=== PATIENT | female | born 1985 | race Caucasian/White ===

== ENCOUNTER 2018-10-22 18:37 | Emergency (ER) | payer MEDICARE ==
[2018-10-22] MEDS ORDERED: NORMAL SALINE 1000 ML 1,000 ML IV ONE (19:39)
[2018-10-22] MEDS ORDERED: MORPHINE SULFATE 10 MG/ML INJ IV ONE (19:39)
--- NOTE | 2018-10-22 19:39 | ER Document Report ---
ED General - General Chief Complaint: Weakness Stated Complaint: SHORTNESS OF BREATH,SHAKING Time Seen by Provider: 10/22/18 19:16 Mode of Arrival: Ambulatory Information source: Patient Notes: This is a 33-year-old female (transitioning to male), history of asthma who presents to the emergency room with shortness of breath, feeling lightheaded, faint, diaphoresis. 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 TRAVEL OUTSIDE OF THE [place] IN LAST 30 DAYS: No - HPI Onset: Last week Onset/Duration: Gradual Quality of pain: Dull Severity: Moderate Pain Level: 1 Associated symptoms: Nonproductive cough, Shortness of breath. denies: Chest pain, Fever Exacerbated by: Denies Relieved by: Denies Similar symptoms previously: No Recently seen / treated by doctor: No Past Medical History - General Information source: Patient - Social History Smoking Status: Current Every Day Smoker Cigarette use (# per day): Yes - 1/4 pack/day Chew tobacco use (# tins/day): No Frequency of alcohol use: None Drug Abuse: None Lives with: Family Family History: None Patient has suicidal ideation: No Patient has homicidal ideation: No - Past Medical History Cardiac Medical History: Reports: None Pulmonary Medical History: Reports: Hx Asthma EENT Medical History: Reports: None Neurological Medical History: Reports: None Endocrine Medical History: Reports: None Renal/ Medical History: Reports: None Malignancy Medical History: Reports: None GI Medical History: Reports: None Musculoskeletal Medical History: Reports None Skin Medical History: Reports None Psychiatric Medical History: Reports: None Traumatic Medical History: Reports: None Infectious Medical History: Reports: None Surgical Hx: Other - ENT surgery Review of Systems - Review of Systems Constitutional: denies: Chills, Fever EENT: No symptoms reported Cardiovascular: denies: Chest pain, Palpitations, Heart racing Respiratory: See HPI Gastrointestinal: No symptoms reported Genitourinary: No symptoms reported Female Genitourinary: No symptoms reported Musculoskeletal: No symptoms reported Skin: See HPI Hematologic/Lymphatic: No symptoms reported Neurological/Psychological: No symptoms reported Physical Exam - Vital signs Vitals: Temp Pulse Resp BP Pulse Ox 98.5 F 113 H 18 153/87 H 97 10/22/18 18:45 12/09/18 18:45 10/22/18 18:45 10/22/18 18:45 10/22/18 18:45 Notes: Physical exam: GENERAL: She is alert and oriented x3, no acute distress HEAD: Atraumatic, normocephalic. EYES: Pupils equal round and reactive to light, extraocular movements intact, sclera anicteric, conjunctiva are normal. ENT: TMs normal, nares patent, oropharynx clear without exudates. Moist mucous membranes. NECK: Normal range of motion, supple without obvious mass or JVD. LUNGS: Breath sounds clear to auscultation bilaterally and equal. No wheezes rales or rhonchi. HEART: Regular rate and rhythm without murmurs, rubs or gallops. ABDOMEN: Soft, normoactive bowel sounds. No tenderness to palpation. No guarding, no rebound. No masses appreciated. EXTREMITIES: She does have a small laceration over the volar aspect of the middle finger. There is no pus drainage. There is no erythema or evidence of flexor tenosynovitis. Normal range of motion, no pitting or edema. No clubbing or cyanosis. NEUROLOGICAL: Cranial nerves II through XII grossly intact. Normal speech, moving all extremities. PSYCH: Normal mood, normal affect. SKIN: Warm, Dry, normal turgor, no rashes or lesions noted. Course - Re-evaluation Re-evalutation: 10/22/18 22:55 Note: Patient did get dual neb which he states had no significant improvement. Given the hormone therapy and cigarette smoking, we will get a CTA of the chest. - Vital Signs Vital signs: Temp Pulse Resp BP Pulse Ox 98.5 F 113 H 16 124/68 97 10/22/18 18:45 10/22/18 18:45 10/22/18 22:01 10/22/18 22:01 10/22/18 22:01 - Laboratory Result Diagrams: 10/22/18 19:50 10/22/18 19:50 - Diagnostic Test Radiology reviewed: Image reviewed, Reports reviewed - CTA shows no pulmonary emboli - EKG Interpretation by Me Rate: Normal Rhythm: NSR - EKG shows normal sinus rhythm with no acute ST-T wave changes Discharge - Discharge Clinical Impression: Dyspnea Condition: Stable Disposition: HOME, SELF-CARE Additional Instructions: As we discussed, the CT of the chest showed no evidence of blood clots or pneumonia or any problems with the lungs. Your blood work looked quite good. The laceration to the finger looks like it is healing well. I do not see any evidence of infection there. Given the nasal discharge and the cough, we will put you on an antibiotic: Take as prescribed. I did write for some Xanax because you did appear anxious. Would like you to follow-up with your accident report clerk is well as your primary care doctor. Into the emergency room for worsening shortness of breath or pain or any concerns or getting worse. Take it easy over the next few days, drink plenty of fluids. Prescriptions: Alprazolam [Xanax 0.5 Mg Tablet] 1 tab PO TID PRN #14 tablet PRN Reason: Anxiety Doxycycline Hyclate 100 mg PO BID #19 capsule Referrals: JOHANA ALVARADO PA [Primary Care Provider] - Follow up tomorrow
[2018-10-22] MEDS ORDERED: ONDANSETRON HCL INJ/PF 4 MG/2 ML SDV IV ONE (19:40)
[2018-10-22] MEDS ORDERED: IPRATROPIUM/ALBUTEROL 0.5-2.5 MG/3 ML AMPUL NEB ONE (19:40)
[2018-10-22] MEDS ORDERED: DIPH/PERTUSS(ACELL)/TETANUS VAC/PF 0.5 ML SYR (>=10YO) IM ONE (19:40)
[2018-10-22 20:10] LABS: ABSOLUTE LYMPHOCYTES (AUTO) 1.4 10^3/uL (0.5-4.7); ABSOLUTE MONOCYTES (AUTO) 0.7 10^3/uL (0.1-1.4); ABSOLUTE NEUT (AUTO) 6.2 10^3/uL (1.7-8.2); BASOPHILS % (AUTO) 0.4 % (0-2); EOSINOPHILS % (AUTO) 0.4 % (0-6); HEMATOCRIT 44.9 % (36.0-47.0); HEMOGLOBIN 15.5 g/dL (12.0-15.5); LYMPHOCYTES % (AUTO) 16.9 % (13-45); MEAN CORPUSCULAR HEMOGLOBIN 32.6 pg (27.0-33.4); MEAN CORPUSCULAR HGB CONC 34.4 g/dL (32.0-36.0); MEAN CORPUSCULAR VOLUME 95 fl (80-97); MONOCYTES % (AUTO) 8.2 % (3-13); PLATELET COUNT 278 10^3/uL (150-450); RED BLOOD COUNT 4.74 10^6/uL (3.72-5.28); RED CELL DISTRIBUTION WIDTH 13.1 % (11.5-14.0); SEGMENTED NEUTROPHILS % (AUTO) 74.1 % (42-78); TOTAL CELLS COUNTED % (AUTO) 100 %; WHITE BLOOD COUNT 8.4 10^3/uL (4.0-10.5)
[2018-10-22 20:14] LABS: ALANINE AMINOTRANSFERASE 20 U/L (9-52); ALBUMIN 4.8 g/dL (3.5-5.0); ALKALINE PHOSPHATASE 77 U/L (38-126); ANION GAP 13 (5-19); ASPARTATE AMINO TRANSFERASE 24 U/L (14-36); BILIRUBIN,DIRECT 0.3 mg/dL (0.0-0.4); BILIRUBIN,TOTAL 0.7 mg/dL (0.2-1.3); BLOOD UREA NITROGEN 8 mg/dL (7-20); CALCIUM 9.6 mg/dL (8.4-10.2); CARBON DIOXIDE 25 mmol/L (22-30); CHLORIDE 104 mmol/L (98-107); GLUCOSE 101 mg/dL (75-110); POTASSIUM 3.7 mmol/L (3.6-5.0); SODIUM 142.3 mmol/L (137-145); TOTAL PROTEIN 7.3 g/dL (6.3-8.2)
--- NOTE | 2018-10-22 20:16 | RADIOLOGY REPORT (SQ) ---
EXAM DESCRIPTION: CHEST 2 VIEWS COMPLETED DATE/TIME: 10/22/2018 8:09 pm REASON FOR STUDY: sob COMPARISON: None. EXAM PARAMETERS: NUMBER OF VIEWS: two views TECHNIQUE: Digital Frontal and Lateral radiographic views of the chest acquired. RADIATION DOSE: NA LIMITATIONS: none FINDINGS: LUNGS AND PLEURA: No opacities, masses or pneumothorax. No pleural effusion. MEDIASTINUM AND HILAR STRUCTURES: No masses or contour abnormalities. HEART AND VASCULAR STRUCTURES: Heart normal size. No evidence for failure. BONES: No acute findings. HARDWARE: None in the chest. OTHER: No other significant finding. IMPRESSION: NO ACUTE RADIOGRAPHIC FINDING IN THE CHEST. TECHNICAL DOCUMENTATION: JOB ID: [id number] [email or web address]- All Rights Reserved Reading location - IP/workstation name: [email or web address]
--- NOTE | 2018-10-22 20:16 | RADIOLOGY REPORT (SQ) ---
EXAM DESCRIPTION: FINGER LEFT COMPLETED DATE/TIME: 10/22/2018 8:09 pm REASON FOR STUDY: lac-middle finger COMPARISON: None. NUMBER OF VIEWS: Three views. TECHNIQUE: AP, lateral, and oblique images acquired of the left third finger. LIMITATIONS: None. FINDINGS: MINERALIZATION: Normal. BONES: No acute fracture or dislocation. No worrisome bone lesions. SOFT TISSUES: No soft tissue swelling. No foreign body. OTHER: No other significant finding. IMPRESSION: NO RADIOGRAPHIC EVIDENCE OF ACUTE INJURY. TECHNICAL DOCUMENTATION: JOB ID: [id number] [email or web address]- All Rights Reserved Reading location - IP/workstation name: [email or web address]
--- NOTE | 2018-10-22 22:48 | RADIOLOGY REPORT (SQ) ---
EXAM DESCRIPTION: CT CHEST ANGIOGRAPHY WITHOUT THEN WITH IV CONTRAST, three-dimensional reconstructions COMPLETED DATE/TME: 10/22/2018 21:46 CLINICAL HISTORY: 33 years, Female, sob This exam was performed according to our departmental dose-optimization program which includes automated exposure control, adjustment of the mA and/or kVp according to patient size and/or use of iterative reconstruction technique where applicable. Aorta is within normal limits. No dissection or aneurysm. Pulmonary arteries are well opacified with no significant filling defects in the pulmonary arterial tree to suggest acute pulmonary embolism. No significant mediastinal, hilar or axillary lymphadenopathy. No pleural or pericardial effusions. Visualized upper abdominal organs are within normal limits. Evaluation of the lung parenchyma demonstrates trachea and major airways to be patent. No suspicious lung nodules or masses. No consolidations to suggest pneumonia. IMPRESSION: No acute pulmonary embolism. No acute pathology.
[2018-10-22] MEDS ORDERED: ALPRAZOLAM 0.5 MG TABLET PO ONE (23:04)
[2018-10-22] MEDS ORDERED: DOXYCYCLINE HYCLATE 100 MG TABLET PO ONE (23:05)
[2018-10-22 23:30] VITALS: BP 139/84
--- NOTE | 2018-10-23 00:01 | EKG REPORT ---
SEVERITY:- BORDERLINE ECG - SINUS RHYTHM PROBABLE LEFT ATRIAL ABNORMALITY : Confirmed by: Xin Alcantara 23-Oct-2018 00:00:31
== END 2018-10-22 23:29 | disposition home or self-care (01) ==
LOC: ER 18:37
DX: R06.00 Dyspnea, unspecified (principal); R53.1 Weakness; R42 Dizziness and giddiness; R61 Generalized hyperhidrosis; S61.213A Laceration without foreign body of left middle finger without damage to nail, initial encounter; W26.9XXA Contact with unspecified sharp object(s), initial encounter; F17.210 Nicotine dependence, cigarettes, uncomplicated; J45.909 Unspecified asthma, uncomplicated
CPT/HCPCS: 93005; 94640; 99285; 96361; 90471; 96374; 96375; 36415; 85025; 80053; 83605; 71046; 73140; 71275; 90715; 93010; A9270 ×3; J2270; J2405; J7030; J7620

== ENCOUNTER 2018-10-23 15:24 | Emergency (ER) | payer MEDICARE ==
[2018-10-23] MEDS ORDERED: PROCHLORPERAZINE EDISYLATE INJ 10 MG/2 ML VIAL IV ONE (15:42)
[2018-10-23] MEDS ORDERED: ONDANSETRON HCL INJ/PF 4 MG/2 ML SDV IV ONE (15:42)
--- NOTE | 2018-10-23 15:42 | ER Document Report ---
ED Medical Screen (RME) - General Chief Complaint: Tremor Stated Complaint: DIZZINESS Time Seen by Provider: 10/23/18 15:39 TRAVEL OUTSIDE OF THE [place] IN LAST 30 DAYS: No - HPI Notes: 10/23/18 15:40 transforming female to male on hormone therapy returns because of dizziness. neg pe/sob workup day prior - Related Data Allergies/Adverse Reactions: No Known Allergies Allergy (Unverified 10/23/18 15:25) Past Medical History Pulmonary Medical History: Reports: Hx Asthma Renal/ Medical History: Denies: Hx Peritoneal Dialysis Review of Systems - Review of Systems Neurological/Psychological: Other - dizziness Physical Exam - Respiratory Respiratory status: No respiratory distress Chest status: Nontender Breath sounds: Normal Chest palpation: Normal - Cardiovascular Rhythm: Regular Heart sounds: Normal auscultation Doctor's Discharge - Discharge Referrals: JOHANA ALVARADO PA [Primary Care Provider] - Follow up as needed
[2018-10-23] MEDS: NORMAL SALINE 1000 ML 1,000 ML IV PRN ×2 (16:35→17:14)
[2018-10-23 16:42] LABS: ABSOLUTE LYMPHOCYTES (AUTO) 1.5 10^3/uL (0.5-4.7); ABSOLUTE MONOCYTES (AUTO) 0.7 10^3/uL (0.1-1.4); BASOPHILS % (AUTO) 0.4 % (0-2); EOSINOPHILS % (AUTO) 0.2 % (0-6); HEMATOCRIT 44.5 % (36.0-47.0); HEMOGLOBIN 15.5 g/dL (12.0-15.5); LYMPHOCYTES % (AUTO) 15.9 % (13-45); MEAN CORPUSCULAR HEMOGLOBIN 33.5 pg (27.0-33.4); MEAN CORPUSCULAR HGB CONC 34.9 g/dL (32.0-36.0); MEAN CORPUSCULAR VOLUME 96 fl (80-97); MONOCYTES % (AUTO) 7.3 % (3-13); PLATELET COUNT 290 10^3/uL (150-450); RED BLOOD COUNT 4.64 10^6/uL (3.72-5.28); RED CELL DISTRIBUTION WIDTH 13.2 % (11.5-14.0); SEGMENTED NEUTROPHILS % (AUTO) 76.2 % (42-78); TOTAL CELLS COUNTED % (AUTO) 100 %; WHITE BLOOD COUNT 9.1 10^3/uL (4.0-10.5)
[2018-10-23] MEDS ORDERED: LORAZEPAM INJ 2 MG/1 ML VIAL IV ONE (16:57)
--- NOTE | 2018-10-23 16:57 | ER Document Report ---
ED General - General Mode of Arrival: Ambulatory Information source: Patient TRAVEL OUTSIDE OF THE [place] IN LAST 30 DAYS: No <TORIE MCCOY - Last Filed: 10/23/18 17:00> <NOE RUDOLPH - Last Filed: 10/23/18 18:21> - General Chief Complaint: Tremor Stated Complaint: DIZZINESS Time Seen by Provider: 10/23/18 15:39 Notes: Patient is a 33-year-old female, currently transitioning to male, presents to the emergency department complaining of multiple symptoms including dizziness, shortness of breath and shaking. Patient states that the symptoms were onset 3 days ago and also describes it as her head feeling "foggy" and states she "can' t get a good breath". Patient states that she presented to the emergency department yesterday and was discharged with Doxycycline and Xanax told to follow-up with her transportation mechanic. Patient states she was unable to follow with her transportation mechanic since they are located in [place] so she went to the [place] who instructed her to come to the emergency department. While in the emergency department yesterday, patient had a CTA of the chest and abdomen performed which showed to be unremarkable. She also had lab work done which also proved to be unremarkable. Patient states that she is currently on testosterone and this no longer have a menstrual cycle. (TORIE MCCOY) - Related Data Allergies/Adverse Reactions: No Known Allergies Allergy (Unverified 10/23/18 15:25) Past Medical History - General Information source: Patient - Social History Smoking Status: Current Every Day Smoker Chew tobacco use (# tins/day): No Frequency of alcohol use: None Drug Abuse: None Family History: None Patient has suicidal ideation: No Patient has homicidal ideation: No Pulmonary Medical History: Reports: Hx Asthma <TORIE MCCOY - Last Filed: 10/23/18 17:00> Review of Systems - Review of Systems Constitutional: No symptoms reported EENT: No symptoms reported Cardiovascular: See HPI, Dizziness Respiratory: See HPI, Short of breath Gastrointestinal: No symptoms reported Genitourinary: No symptoms reported Female Genitourinary: No symptoms reported Musculoskeletal: No symptoms reported Skin: No symptoms reported Hematologic/Lymphatic: No symptoms reported Neurological/Psychological: No symptoms reported -: Yes All other systems reviewed and negative <TORIE MCCOY - Last Filed: 10/23/18 17:00> Physical Exam <TORIE MCCOY - Last Filed: 10/23/18 17:00> <NOE RUDOLPH - Last Filed: 10/23/18 18:21> - Vital signs Vitals: Resp BP Pulse Ox 22 H 125/73 99 10/23/18 16:38 10/23/18 16:38 10/23/18 16:38 - Notes Notes: GENERAL: Alert, interacts well, intermittently shaking in bed. No acute distress. HEAD: Normocephalic, atraumatic. EYES: Pupils equal, round, and reactive to light. Extraocular movements intact. ENT: Oral mucosa moist, tongue midline. NECK: Full range of motion. Supple. Trachea midline. LUNGS: Rhonchi with cough. No respiratory distress. HEART: Regular rate and rhythm. No murmurs, gallops, or rubs. ABDOMEN: Soft, non-tender. Non-distended. Bowel sounds present in all 4 quadrants. EXTREMITIES: Moves all 4 extremities spontaneously. No edema, radial and dorsalis pedis pulses 2/4 bilaterally. No cyanosis. NEUROLOGICAL: Alert and oriented x3. Normal speech. PSYCH: Anxious. SKIN: Warm, dry, normal turgor. No rashes or lesions noted. (TORIE MCCOY) Course - Laboratory Result Diagrams: 10/23/18 16:12 10/23/18 16:12 <NADINEALETHEACHARLEY - Last Filed: 10/23/18 17:00> - Laboratory Result Diagrams: 10/23/18 16:12 10/23/18 17:16 - EKG Interpretation by Me EKG shows normal: Sinus rhythm, [place], Intervals, QRS Complexes, ST-T Waves Rate: Normal - 77 Rhythm: NSR P Waves: LAE When compared to previous EKG there are: No significant change <NOE RUDOLPH - Last Filed: 10/23/18 18:21> - Re-evaluation Re-evalutation: 10/23/18 18:17 Patient was sleeping. She was awakened for re-exam. The shakiness and feeling that she was unable to get a good breath symptoms are gone at this time. She is advised to get the Xanax prescription she received yesterday filled and follow-up with her primary care provider for referral to psychology services if the symptoms continue to be a problem. (NOE RUDOLPH) - Vital Signs Vital signs: Temp Pulse Resp BP Pulse Ox 81 18 126/68 H 98 10/23/18 17:36 10/23/18 17:18 10/23/18 17:36 10/23/18 17:18 - Laboratory Laboratory results interpreted by me: 10/23/18 10/23/18 10/23/18 16:12 17:16 17:18 MCH 33.5 H Chloride 108 H BUN 6 L Urine Ketones 20 H Ur Leukocyte Esterase TRACE H Discharge <TORIE MCCOY - Last Filed: 10/23/18 17:00> <NOE RUDOLPH - Last Filed: 10/23/18 18:21> - Discharge Clinical Impression: Anxiety, generalized Condition: Stable Disposition: HOME, SELF-CARE Additional Instructions: Anxiety: The physician feels that some of your health problems are being caused by anxiety. Anxiety affects your health in many ways. Anxiety alone can cause palpitations, sweats, chest pains, abdominal pains, shortness of breath, and headaches. It contributes to ulcer disease, high blood pressure, irritable bowel syndrome, and has been shown to cause flare-ups of many other diseases. Anxiety is not a simple disorder to treat. If the anxiety is due to recent life stresses, you may simply need time to "work through" the changes. If the anxiety is due to an underlying unhappiness with yourself or due to psychiatric disturbance, professional help will be needed. Your physician can refer you for further help if needed. Anti-anxiety medication is occasionally given if the stress is acute or if you are having trouble sleeping. Chronic or frequent use of these medications is not a good idea because the body becomes reliant on it, preventing you from dealing with life's normal stresses. Get the Xanax prescription from yesterday filled and take it as needed to control your anxiety symptoms. Follow-up with your primary care provider this week for recheck if not improving. Consider consulting psychological services if the symptoms persist and continue to require medication. RETURN TO THE EMERGENCY ROOM IF ANY NEW OR WORSENING SYMPTOMS. Referrals: JOHANA ALVARADO PA [Primary Care Provider] - Follow up as needed Scribe Attestation: 10/23/18 17:36 I personally performed the services described in the documentation, reviewed and edited the documentation which was dictated to the scribe in my presence, and it accurately records my words and actions. (NOE RUDOLPH) Scribe Documentation - Scribe Written by Alejandro:: Alejandro Burgos, 10/23/2018 17:06 acting as scribe for :: Jefry <TORIE MCCOY - Last Filed: 10/23/18 17:00>
[2018-10-23 17:36] LABS: APPEARANCE,URINE CLEAR; BILIRUBIN,URINE NEGATIVE (NEGATIVE); COLOR,URINE STRAW; GLUCOSE, URINE NEGATIVE (NEGATIVE); KETONES,URINE 20 mg/dL (NEGATIVE); LEUKOCYTE ESTERASE,URINE TRACE (NEGATIVE); NITRITE,URINE NEGATIVE (NEGATIVE); PROTEIN,URINE NEGATIVE (NEGATIVE); URINE SPECIFIC GRAVITY 1.005; UROBILINOGEN,URINE NEGATIVE mg/dL (<2.0)
[2018-10-23 17:46] LABS: URINE AMPHETAMINES SCREEN NEGATIVE; URINE BARBITURATES SCREEN NEGATIVE; URINE BENZODIAZEPINES SCREEN NEGATIVE; URINE COCAINE SCREEN NEGATIVE; URINE MARIJUANA (THC) SCREEN UNCONFIRMED POSITIVE; URINE METHADONE SCREEN NEGATIVE; URINE PHENCYCLIDINE SCREEN NEGATIVE
[2018-10-23 17:50] LABS: ANION GAP 13 (5-19); BLOOD UREA NITROGEN 6 mg/dL (7-20); CALCIUM 9.2 mg/dL (8.4-10.2); CARBON DIOXIDE 23 mmol/L (22-30); CHLORIDE 108 mmol/L (98-107); GLUCOSE 84 mg/dL (75-110); POTASSIUM 4.2 mmol/L (3.6-5.0); SODIUM 144.2 mmol/L (137-145)
[2018-10-23 19:20] VITALS: BP 120/60
--- NOTE | 2018-10-24 13:08 | EKG REPORT ---
SEVERITY:- BORDERLINE ECG - SINUS RHYTHM PROBABLE LEFT ATRIAL ABNORMALITY : Confirmed by: Holly Zapata MD 24-Oct-2018 13:07:25
== END 2018-10-23 19:24 | disposition home or self-care (01) ==
LOC: ER 15:24
DX: F41.9 Anxiety disorder, unspecified (principal); R42 Dizziness and giddiness; R06.02 Shortness of breath; F17.200 Nicotine dependence, unspecified, uncomplicated
CPT/HCPCS: 93005; 99284; 96361; 96374; 96375; 36415; 83735; 84703; 85025; 80048; 81001; 80307; 93010; J2060; J0780; J2405; J7030